=== PATIENT | male | born 1990 | race Caucasian/White ===

== ENCOUNTER 2016-04-25 15:10 | Emergency (ER) | payer OTHER ==
[~2016-04-25] VITALS: Ht 162.6 cm; Wt 55.4 kg
[2016-04-25 15:25] VITALS: TEMP 37; Ht 162.6 cm; Wt 55.4 kg
[2016-04-25] MEDS ORDERED: HYDR-5688 PO (15:38)
[2016-04-25 15:47] VITALS: BP 148/89; PULSE 91; O2SAT 100
--- NOTE | 2016-04-26 00:26 | EMERGENCY ROOM VISIT NOTE ---
ED Visit Note First contact with patient: 15:27 CHIEF COMPLAINT: I broke my tooth. HISTORY OF PRESENT ILLNESS: Mr. Alvarez is a 26-year-old white male who ambulates into the complaining of dental pain. He reports a approximately one hour ago he was eating a hamburger when he found he broke his left mandibular molar #18. Since that time he has been having increasing pain in the broken tooth. He describes his discomfort as a throbbing sensation. He rates his discomfort 6/10. His pain is radiating down to the angle of the mandible. His pain worsens with palpation of the broken tooth and chewing. He has not identified any alleviating factors. He has not taken any medications for pain prior to arrival at the hospital. He denies any associated symptoms. He denies any associated symptoms including fevers, chills , sweats, facial swelling, sore throat, difficulty swallowing, voice changes, drooling. REVIEW OF SYSTEMS: As noted above in History of Present Illness. PMH: Patient denies. CURRENT MEDICATION: Patient denies. ALLERGIES TO MEDICATION: Patient denies. SOCIAL HISTORY: Patient is currently employed; he feels safe environment; he admits to tobacco use and denies alcohol use. PHYSICAL EXAM: Vital Signs: Date Time Temp Pulse Resp B/P Pulse Ox O2 Delivery O2 Flow Rate FiO2 04/25/16 15:25 37.0 96 16 138/87 99 Room Air General: 26 year-old white male in moderate distress due to pain, nontoxic appearing, afebrile and hemodynamically stable. Neurological: Awake, alert and oriented to person, place and time. Answering questions appropriately and following commands. Normal gait. Good hand eye coordination. No focal motor or sensory deficits. Skin: Warm, dry and pink. No soft tissue lesions, rashes, or trauma noted. HEENT: Atraumatic and normocephalic. No facial swelling or erythema. Oral cavity is moist and pink. Airway is patent. Uvula is midline and no abscesses are seen. Speech is normal. No drooling. Tooth #18 is obviously broken. There is minimal blood on the crown of the tooth that is observed but no active bleeding. Tooth is obviously broken. Surrounding this tooth there is most teeth that show obvious signs of dental decay. No abscesses, erythema or edema identified. No cervical or submandibular lymphadenopathy. ED COURSE: Patient is assessed as noted above. Patient is educated about his findings and instructed on her treatment plan; he verbalizes understanding and agreement with this plan. CLINIC IMPRESSION: Broken tooth. Dental pain. DISPOSITION: Patient discharged home in stable condition; prior to departure he was reassessed and subjectively reported he was feeling the same. PLAN: Comfort measures were discussed including a sliding pain scale of ibuprofen, acetaminophen and [place]. He was educated on appropriate narcotic precautions. Additionally the use of dental wax and the use of a mechanical liquid soft diet at room temperature was discussed. Patient was encouraged to keep his mouth clean with increasing brushing, flossing and gargling with water. Patient was encouraged to avoid tobacco use. Patient was encouraged to contact his insurance company on dentist participating in his insurance for follow-up care and treatment. Patient was encouraged to return the ED for uncontrolled pain, facial swelling, fevers or any new/concerning symptoms.
== END 2016-04-25 15:49 | disposition home or self-care (01) ==
LOC: C.EDB 15:14 → C.EDD 15:49
DX: S02.5XXA Fracture of tooth (traumatic), initial encounter for closed fracture (principal); K08.89 Other specified disorders of teeth and supporting structures; X58.XXXA Exposure to other specified factors, initial encounter; F17.200 Nicotine dependence, unspecified, uncomplicated